=== PATIENT | female | born 1965 | race Caucasian/White ===

== ENCOUNTER → 2023-01-29 | Outpatient (CLI) | payer BC, OTHER, SELFPAY ==
[~2023-01-29] MED LIST: ACET65TA OR; ACTI300C OR; BUDE300T OR; CLON0.5T OR; ESTRODIAL PO; HYOMAX PO; HYOMAX-SR PO; KLON0.5T OR; LEVO100T7 OR; LEVOXYL PO; MAALSUS OR; METO10TA2 OR; ONDA-1 OR; PRIL20CA OR; PRILOSEC; PROT1TAB2 OR; SUCR1TAB56 OR; XANA0.25 OR
== END ==
LOC: M SLEEP 20:00
PROVIDERS: ATTEND Physician Assistant
DX: G47.33 Obstructive sleep apnea (adult) (pediatric) (principal)

== ENCOUNTER 2024-11-10 06:28 | Day surgery (SDC) | payer BC, OTHER ==
[~2024-11-10] VITALS: Ht 160 cm; Wt 81.0 kg
[~2024-11-10 06:28] MED LIST changes: +AMIT25TA19 PO; +BUPR150T12 PO; +DICY20TA20 PO; +DIPH1TAB81 PO; +ESTR2TAB3 PO; +HYDR-3363 PO; +PRED10TA2 PO; +VIBE1TAB2 PO
[2024-11-10] MEDS ORDERED: LIDOCAINE 2% 100MG/5ML SDV (FOR ANES.) As Ordered ONE (06:50)
[2024-11-10] MEDS ORDERED: propofoL 200 MG/20 ML VIAL As Ordered ONE (06:50)
[2024-11-10 08:05] VITALS: BP 137/76; TEMP 98.1; O2SAT 98
== END 2024-11-10 08:13 | disposition home or self-care (01) ==
LOC: M OPP 06:28
PROVIDERS: ATTEND Surgery
DX: Z12.11 Encounter for screening for malignant neoplasm of colon (principal); R19.5 Other fecal abnormalities; K64.8 Other hemorrhoids; G47.30 Sleep apnea, unspecified; Z91.012 Allergy to eggs; Z91.040 Latex allergy status; Z79.52 Long term (current) use of systemic steroids; Z79.899 Other long term (current) drug therapy